=== PATIENT | male | born 1955 | race Caucasian/White ===

== ENCOUNTER 2019-10-08 17:03 | Emergency (ER) | payer MEDICAID ==
[~2019-10-08] VITALS: Ht 170.2 cm; Wt 78.5 kg
[2019-10-08 17:19] VITALS: Ht 170.2 cm; Wt 78.5 kg
[2019-10-08 18:28] LABS: PLATELET COUNT 194 x10^3mcL (130-400); RED CELL DISTRIBUTION WIDTH 13.2 % (11.5-14.5)
[2019-10-08 18:39] LABS: BAND NEUTROPHIL 3 % (0-10); BASOPHIL 0 % (0-2); MONOCYTE 3 % (0-7); SEGMENTED NEUTROPHILS 88 % (37-75); rbc morphology (normal/abnorm) NORMAL (NORMAL)
[2019-10-08 19:00] LABS: CALCIUM 7.8 mg/dL (8.5-10.1); CREATININE SERUM 1.9 mg/dL (0.7-1.3); POTASSIUM SERUM 4.1 mmol/L (3.5-5.1)
[2019-10-08 19:04] LABS: BILIRUBIN TOTAL 0.39 mg/dL (0.20-1.00)
[2019-10-08 19:19] LABS: ALBUMIN 2.1 g/dL (3.4-5.0); TOTAL PROTEIN, SERUM 5.7 g/dL (6.4-8.2)
[2019-10-08 22:59] VITALS: BP 135/77
== END 2019-10-08 22:59 | disposition home or self-care (01) ==
LOC: ED 17:03
PROVIDERS: Emergency Medicine
DX: J18.9 Pneumonia, unspecified organism (principal)
CPT/HCPCS: 87804; J0456; J0696; J1885; Q0092

== ENCOUNTER 2019-10-11 17:03 | Emergency (ER) | payer MEDICAID ==
[~2019-10-11] VITALS: Ht 170.2 cm; Wt 78.5 kg
[2019-10-11 17:10] VITALS: Ht 170.2 cm; Wt 78.5 kg
[2019-10-11 18:18] VITALS: BP 160/87
== END 2019-10-11 18:18 | disposition home or self-care (01) ==
LOC: ED 17:03
DX: J18.9 Pneumonia, unspecified organism (principal); J04.0 Acute laryngitis
CPT/HCPCS: J7512